=== PATIENT | male | born 1960 | race Caucasian/White ===

== ENCOUNTER 2023-05-12 05:35 | Day surgery (SDC) | payer OTHER ==
[~2023-05-12] VITALS: Ht 175.3 cm; Wt 96.8 kg
--- NOTE | ~2023-05-12 | OR ---
[facility] [address] [place], [place] [address] [place] DATE OF OPERATION: SURGEON: Loli Dill DPM PREOPERATIVE DIAGNOSIS: Foreign body, sewing needle, left foot deep. POSTOPERATIVE DIAGNOSIS: Foreign body, sewing needle, left foot deep. PROCEDURE: Deep excision of foreign body, left foot. DIRECTOR OF AUDIOLOGY SURGEON: Haresh Velasquez DPM. NURSE TRANSMITTER ENGINEER IN CHARGE: Eun Mercado CRNA. ANESTHESIA: Local with MAC consisting of 12 mL of 1:1 mixture of 2% lidocaine plain and 0.5% ropivacaine. ESTIMATED BLOOD LOSS: Less than 3 mL or minimal. HEMOSTASIS: With an ankle tourniquet. MATERIALS UTILIZED: 4-0 Vicryl, 5-0 nylon. PROCEDURE IN DETAIL: The patient was brought into the operating room and placed upon the operating table in the supine position. After IV sedation an ankle block was administered by injecting into the posterior tibial canal as well as anterior ankle region. The left foot was then scrubbed, prepped and draped in usual sterile technique. An Esmarch bandage was then utilized to exsanguinate the patient's left foot, then left wrapped around the ankle to act as tourniquet. Attention was directed on the dorsal aspect of the foot to the area between the second and third metatarsals where utilizing a #15 blade. A linear incision was performed approximately 4 cm in length. The incision was then deepened PATIENT NAME: MARTY LOPEZ ASHUTOSHSARINA OPERATIVE REPORT DATE OF : 62 REPORT #: [id number] PHYSICIAN: LOLI DILL DPM PCP: ROD MASTERSON PA-C REPORT IS CONFIDENTIAL AND NOT TO BE RELEASED WITHOUT AUTHORIZATION [facility] [address] [place], [place] [address] Draft down to the subcutaneous tissue utilizing a #64 blade and curved tenotomy. Upon access into the intermetatarsal space region, both sharp and blunt dissection continued down to the area of the deep transverse metatarsal ligament just proximal to this area adjacent to the second metatarsal. Fluoroscopy was utilized to visualize the foreign body which was then grabbed with a hemostat. Soft tissue structures were then cleaned from the wound aspect of the foreign body and another hemostat was utilized to grab the bare needle and the foreign body was then extracted. The area was then flushed with copious amounts of sterile normal saline. 4-0 Vicryl was then utilized to reapproximate and coapt the deep soft tissue fascia structure layer. 4-0 Vicryl was then also utilized to reapproximate and coapt subcutaneous and 5-0 nylon and the continuous interlocking suture technique was utilized to reapproximate and coapt the integument. The surgical site was then grasped with Betadine soaked gauze, fluff gauze and Coban. The ankle tourniquet was removed and prompt hyperemic response was noted to all digits of the patient's left foot. Interoperative fluoroscopy was utilized to visualize the foot after the removal of the foreign body and there was no retained foreign body fragment identified. The patient was then transported to the recovery room with vital signs stable and cap refill time grossly intact to all digits of left foot. The patient had tolerated both the procedure and the anesthesia well and following a period of postoperative monitoring the patient was discharged to home with both written and oral instructions. GINA Dubois/SHAHANA /[id number] Copies: ~ PATIENT NAME: MARTY LOPEZ OPERATIVE REPORT DATE OF : 62 REPORT #: [id number] PHYSICIAN: LOLI DILL DPM PCP: ROD MASTERSON PA-C REPORT IS CONFIDENTIAL AND NOT TO BE RELEASED WITHOUT AUTHORIZATION
[~2023-05-12 05:35] MED LIST: CEPHALEXIN500 M1 PO
[2023-05-12 06:06] VITALS: BP 118/71
[2023-05-12] MEDS ORDERED: LISINOPRIL-HCT1 EACH PO (06:07)
--- NOTE | 2023-05-12 07:09 | NUR ---
DS ROUNDS. PT GONE FOR PROCEDUE. PRAYED SILENTLY FOR SUCCESSFUL PROCEDURE AND DYER RECOVERY.
--- NOTE | 2023-05-12 08:24 | NUR ---
05/12/23 0824 Agnes Dorman 0802 PT TO PACU FROM OR PER STRETCHER. ORAL AIRWAY WITH MASK IN PLACE. RESPIRATIONS ELVIN AND UNLABORED. DRSG TO L FOOT CDI, ELEVATED WITH SCDS ON BILATERALLY. 0820 PT STILL ASLEEP. BREATHING UNLABORED AND EVEN.
[2023-05-12 08:58] VITALS: BP 108/75
== END 2023-05-12 09:00 | disposition home or self-care (01) ==
LOC: DS 05:35 → OPS 05:35
PROVIDERS: ATTEND Podiatrist Foot & Ankle Surgery
PROC: 0KCW0ZZ Extirpation of Matter from Left Foot Muscle, Open Approach (ICD-10-PCS; principal; 2023-05-12 07:00)
DX: S91.342A Puncture wound with foreign body, left foot, initial encounter (principal)
CPT/HCPCS: 01470; 73620; J1100; J1885; J2001; J2250; J2405; J2704; J2795; J3490; J7121